=== PATIENT | male | born 1990 | race Caucasian/White ===

== ENCOUNTER 2018-02-06 09:04 | Emergency (ER) | payer SELFPAY ==
[2018-02-06] MEDS ORDERED: Tetan/Diph/Pertus SYR(Tdap)* 0.5 ML SYR(BOOSTRIX) use SYR IM ONE (09:24)
[2018-02-06] MEDS ORDERED: Lidocaine 1% MDV 20 ML INJ ONE (09:58)
[2018-02-06] MEDS ORDERED: Lidocaine 1%* 5 ML VIAL ONE (10:05)
--- NOTE | 2018-02-06 10:12 | RAD ---
INDICATION: Chain saw injury COMPARISON: None TECHNIQUE: AP and lateral views were obtained. FINDINGS: There is no focal bony lesion on the 2 views submitted. There is deep laceration which communicates with the joint space. There is infrapatellar soft tissue injury with air dissecting into the suprapatellar space. IMPRESSION: DEEP LACERATION COMMUNICATING WITH THE JOINT SPACE
[2018-02-06 11:29] VITALS: BP 121/75
--- NOTE | 2018-02-06 12:19 | ED ---
Laceration/Wound HPI - HPI Summary HPI Summary: Patient presents to the ED with a laceration to just inferior to the left knee from a chainsaw just [employer]. Bleeding is controlled on arrival. Denies any difficulty or pain with flexion or extension. Laceratin length is approximately 7.5cm in length and is very wide at 3.5cm, depth is approximately 1.0cm. Denies any health history, takes no medications. - History of Current Complaint Stated Complaint: LT LEG LAC Time Seen by Provider: 02/06/18 09:09 Hx Obtained From: Patient Mechanism of Injury: Sharp/Blunt Trauma Onset/Duration: Sudden Onset Aggravating: Movement Alleviating: Compression Timing: Constant Onset Severity: Mild Current Severity: Mild Pain Intensity: 4 Pain Scale Used: 0-10 Numeric Associated Signs & Symptoms: Negative - Allergy/Home Medications Allergies/Adverse Reactions: Allergies Allergy/AdvReac Type Severity Reaction Status Date / Time No Known Allergies Allergy Verified 02/06/18 09:18 PMH/Surg Hx/FS Hx/Imm Hx Previously Healthy: Yes Endocrine/Hematology History: Denies: Hx Diabetes, Hx Thyroid Disease Cardiovascular History: Denies: Hx Hypertension Respiratory History: Reports: Hx Asthma Denies: Hx Chronic Obstructive Pulmonary Disease (COPD) GI History: Denies: Hx Ulcer - Immunization History Hx Pertussis Vaccination: No Immunizations Up to Date: Unable to Obtain/Confirm Infectious Disease History: No Infectious Disease History: Denies: Hx Hepatitis, Hx Human Immunodeficiency Virus (HIV), Traveled Outside the in Last 30 Days - Social History Occupation: Employed Full-time Lives: Alone Alcohol Use: Daily Alcohol Amount: 1-2 beers/day Hx Substance Use: No Substance Use Type: Reports: None Hx Tobacco Use: Yes Smoking Status (MU): Current Some Day Smoker Review of Systems Constitutional: Negative Negative: Fever, Chills, Fatigue, Skin Diaphoresis Negative: Epistaxis, Dental Pain Negative: Palpitations, Chest Pain Genitourinary: Negative Positive: no symptoms reported, see HPI Negative: Arthralgia, Myalgia Positive: Other - 7.5cm laceration Neurological: Negative All Other Systems Reviewed And Are Negative: Yes Physical Exam Triage Information Reviewed: Yes Vital Signs On Initial Exam: Initial Vitals Temp Pulse Resp BP Pulse Ox 99.3 F 111 18 182/109 99 02/06/18 09:06 02/06/18 09:06 02/06/18 09:06 02/06/18 09:06 02/06/18 09:06 Vital Signs Reviewed: Yes Appearance: Positive: Well-Appearing, Well-Nourished Skin: Positive: Skin Color Reflects Adequate Perfusion, Other - 7.5cm laceration Head/Face: Positive: Normal Head/Face Inspection Eyes: Positive: EOMI, MITUL, Conjunctiva Clear Neck: Positive: Supple, No Lymphadenopathy Respiratory/Lung Sounds: Positive: Clear to Auscultation, Breath Sounds Present Cardiovascular: Positive: RRR Musculoskeletal: Positive: Strength/ROM Intact, Other - no limitations with flexion and extension Neurological: Positive: Speech Normal Psychiatric: Positive: Normal, Affect/Mood Appropriate AVPU Assessment: Alert Procedures - Laceration/Wound Repair 1 Location: lower extremity Description: Irregular Anesthesia: Local Length, Depth and Shape: 7.5, 3.5, 1 Betadine Prep?: No Irrigated w/ Saline (ccs): 60 Laceration/Wound Explored: contaminated Closure: Multilayer - 2 layers Debridement: moderate Suture Type: Prolene Number of Sutures: 13 Layer Closure?: Yes Sterile Dressing Applied?: No Diagnostics - Vital Signs Vital Signs Temp Pulse Resp BP Pulse Ox 02/06/18 11:29 99.1 F 65 16 121/75 99 02/06/18 10:00 82 99 02/06/18 09:40 80 136/81 99 02/06/18 09:11 101 100 02/06/18 09:10 105 159/88 99 02/06/18 09:06 99.3 F 111 18 182/109 99 - Laboratory Lab Statement: Any lab studies that have been ordered have been reviewed, and results considered in the medical decision making process. Laceration Repair Course/Dx - Course Course Of Treatment: During the course of treatment, laceration repaired using deep and superficial sutures. Chromic gut 3-0 (2) sutures placed. 11 simple sutures with 1 horizontal mattress placed. Appropriated edges well. Please on antibiotics due to close approximation to the joint space. Suture removal in 10 -14 days. - Differential Dx Differental Diagnoses: Joint Infection, Laceration - Clinical Impression Provider Diagnoses: Laceration Discharge - Sign-Out/Discharge Documenting (check all that apply): Discharge/Admit/Transfer - Discharge Plan Condition: Stable Disposition: HOME Prescriptions: Cephalexin CAP* [Keflex CAP*] 500 mg PO TID #21 cap Patient Education Materials: Care For Your Stitches (ED), Laceration (ED) Forms: *Work Release Referrals: Ace STERLING,Art Hyman [Primary Care Provider] - Additional Instructions: Keflex three times daily x 7 days Keep the bandage applied x 24 hours You may then change out the bandage or leave open to air The wound will heal faster if left open to air However, keep the area covered when around a dirty environment You will not need antibiotics, however if you develop warmth, spreading redness , drainage or worsening pain to the area, you will need to return to the ED. Stitches removal in 10-14 days Tetanus has been updated You may go to your PCP, return to the ED or go to Urgent Care for this. If the area becomes dry, you may apply some over the counter antibiotic ointment - Billing Disposition and Condition Condition: STABLE Disposition: Home
== END 2018-02-06 11:29 | disposition home or self-care (01) ==
LOC: ED 09:04
DX: S81.012A Laceration without foreign body, left knee, initial encounter (principal); W31.2XXA Contact with powered woodworking and forming machines, initial encounter; Y92.9 Unspecified place or not applicable; Z23 Encounter for immunization
CPT/HCPCS: 12032; 90471; 90715; 99282